=== PATIENT | female | born 1995 | race Caucasian/White ===

== ENCOUNTER 2021-11-08 20:20 | Emergency (ER) | payer OTHER ==
[2021-11-08 21:30] LABS: BASOPHIL 0.6 % (0-2); EOSINOPHIL 1.1 % (0-5); HCT 45.4 % (37.0-47.0); HGB 14.8 g/dl (12.5-16.0); LYMPHOCYTE 20.7 % (15-48); MCH 28.2 pg (25.0-31.0); MCHC 32.6 g/dL (32.0-36.0); MCV 86.5 fL (78.0-100.0); MONOCYTE 4.6 % (0-12); MPV 9.5 fL (6.0-9.5); NEUTROPHIL 72.6 % (41-80); NRBC 0; PLT 256 K/uL (150-400); RBC 5.25 M/uL (4.20-5.40); RDW 13.2 % (11.5-14.0); WBC 9.9 K/uL (4.0-10.5)
[2021-11-08 21:42] LABS: BILIRUBIN NEGATIVE (NEGATIVE); BLOOD 3+ Ery/uL (NEGATIVE); CLARITY CLEAR (CLEAR); COLOR YELLOW (YELLOW); GLUCOSE (U) NORMAL (NORMAL); LEUKOCYTES NEGATIVE Leu/uL (NEGATIVE); NITRITE NEGATIVE (NEGATIVE); PROTEIN 2+ mg/dL (NEGATIVE); SPECIFIC GRAVITY >=1.030 (1.001-1.030); UROBILINOGEN 0.2 mg/dL (0.2-1.0); pH 5.5 (5.0-9.0)
[2021-11-08 21:47] LABS: ALBUMIN 3.6 g/dL (3.4-5.0); BILIRUBIN - TOTAL 0.2 mg/dL (0.2-1.0); BUN/CREAT RATIO (CALC) 12.4 RATIO; CREATININE 0.89 mg/dL (0.51-0.95); GLOBULIN (CALCULATION) 3.9 g/dL; TOTAL PROTEIN 7.5 g/dL (6.4-8.2)
[2021-11-08 21:51] LABS: AMORPHOUS URATES CRYSTALS TRACE; BACTERIA 2+; CALCIUM OXALATE CRYSTALS LARGE; GRANULAR CASTS TRACE; MUCOUS TRACE
[2021-11-08] MEDS ORDERED: ZOFRAN4 M1 PO (23:41)
[2021-11-08] MEDS ORDERED: BACTRIM DS TAB1 EACH PO (23:41)
[2021-11-08] MEDS ORDERED: NORCO 5-325 TA1 EACH PO (23:41)
[2021-11-08] MEDS ORDERED: FLOMAX 0.4 MG0.4 MG PO (23:41)
== END 2021-11-09 | disposition home or self-care (01) ==
LOC: FER 20:20
PROVIDERS: Emergency Medicine Emergency Medical Services; Nurse Practitioner Family
DX: N13.6 Pyonephrosis (principal); Z88.0 Allergy status to penicillin
CPT/HCPCS: 36415; 80053; 81001; 85025; 87088; J1885; J2405; J7030; Q9967